=== PATIENT | male | born 1955 | race Caucasian/White ===

== ENCOUNTER 2017-05-17 13:01 | Emergency (ER) | payer OTHER ==
[~2017-05-17] VITALS: Ht 180.3 cm; Wt 120.2 kg
[~2017-05-17 13:01] MED LIST: BAYER LOW81 MG OR; DIOVAN320 MG OR; DIOVAN320 MG PO; DYAZIDE1 CAP PO; FISH OIL1 CAP; FLEXERIL10 MG PO; FLUZONE SPLT1 M1 IM; GLUCOTROL10 MG PO; GLUCOTROL5 MG OR; GLUCOTROL5 MG PO; LIALDA1.2 GM OR; METFORMIN500 M1 PO; METFORMIN850 MG PO; METO50TA52 OR; METOPROLOL SUC100 MG PO; NAPROXEN500 MG PO; NEURONTIN300 MG PO; NEURONTIN600 MG PO; NEURONTIN800 MG PO; NORVASC5 MG OR; PRAVASTATIN10 MG PO; SIMVASTATIN40 MG OR; SIMVASTATIN40 MG PO; TRUETEST STRIPS VI
[2017-05-17 13:51] LABS: HEMOGLOBIN 16.4 g/dl (14.0-18.0); IMMATURE GRANULOCYTES 0.7 % (0.0-1.0); MEAN CELL VOLUME 97.6 fL CALC (80.0-100.0); MEAN CORPUSCULAR HGB 29.7 pG CALC (26.0-32.0); MEAN CORPUSCULAR HGB CONC 30.4 g/L CALC (32.0-36.0); NEUT# 7.55 thou/uL (1.82-7.42); RED BLOOD COUNT 5.53 mill/uL (4.70-6.10); RED CELL DISTRI WIDTH 14.1 % (11.5-15.5)
[2017-05-17] MEDS ORDERED: JANUVIA50 MG PO (14:58)
[2017-05-17 15:10] LABS: PROTHROMBIN TIME 11.7 SECONDS (9.0-12.5)
[2017-05-17 15:15] LABS: ALBUMIN 3.1 g/dL (3.2-5.0); ALKALINE PHOSPHATASE 81 u/l (38-126); BILIRUBIN, TOTAL 0.5 mg/dL (0.0-1.4); BUN 52 mg/dL (8-23); BUN/CREATININE RATIO 46 (12-20 (CALC)); CARBON DIOXIDE 32 mmol/l (22-30); CHLORIDE 96 mmol/l (95-108); CREATININE 1.1 mg/dL (0.7-1.3); GFR > 60 ML/MIN (>=60 (CALC)); GFR FOR AFR.AMER. > 60 ML/MIN (>=60 (CALC)); SGOT/AST 28 u/l (19-48); SGPT/ALT 97 u/l (11-66); SODIUM 137 mmol/l (137-146); TOTAL PROTEIN 5.6 g/dL (6.3-8.2)
[2017-05-17 15:22] LABS: ANION GAP 15 (6-22 (CALC)); POTASSIUM 5.6 mmol/l (3.5-5.1)
[2017-05-17 19:38] VITALS: BP 112/60
[2017-05-17 19:52] LABS: URINE BILIRUBIN - DIPSTICK NEGATIVE (NEGATIVE); URINE BLOOD DIPSTICK NEGATIVE (NEGATIVE); URINE COLOR YELLOW; URINE GLUCOSE - DIPSTICK NEGATIVE (NEGATIVE); URINE KETONE NEGATIVE (NEGATIVE); URINE LEUK ESTERASE NEGATIVE (NEGATIVE); URINE NITRITE - DIPSTICK NEGATIVE (Negative); URINE PH 5.5 (4.5-8.0); URINE PROTEIN - DIPSTICK NEGATIVE (NEG-TRACE); URINE SPECIFIC GRAVITY 1.015; URINE UROBILINOGEN - DIPSTICK 0.2 E.U./dL (0.2)
[2017-05-17 19:55] LABS: URINE CLARITY CLEAR
== END 2017-05-17 19:50 | disposition short-term general hospital (02) | DRG 292 ==
LOC: ED 13:01
PROVIDERS: Emergency Medicine
DX: I50.9 Heart failure, unspecified (principal); I24.9 Acute ischemic heart disease, unspecified; N28.9 Disorder of kidney and ureter, unspecified; R79.89 Other specified abnormal findings of blood chemistry; F17.210 Nicotine dependence, cigarettes, uncomplicated; R53.1 Weakness; R06.02 Shortness of breath
CPT/HCPCS: J1650

== ENCOUNTER 2018-01-27 15:49 | Emergency (ER) | payer OTHER ==
[~2018-01-27] VITALS: Ht 180.3 cm; Wt 122.7 kg
[~2018-01-27 15:49] MED LIST changes: -FISH OIL1 CAP; +FISH OIL1 CAP PO; +JANUVIA50 MG PO
[2018-01-27] MEDS ORDERED: ATORVASTATIN CA80 MG PO (16:21)
[2018-01-27 16:22] LABS: HEMATOCRIT 54.4 % (39.0-50.0); IMMATURE GRANULOCYTES 0.6 % (0.0-5.0); MEAN CELL VOLUME 98.6 fL CALC (80.0-100.0); MEAN CORPUSCULAR HGB CONC 29.4 g/L CALC (32.0-36.0); NEUT# 4.61 thou/uL (1.82-7.42); RED BLOOD COUNT 5.52 mill/uL (4.70-6.10); RED CELL DISTRI WIDTH 14.6 % (11.5-15.5)
[2018-01-27] MEDS ORDERED: COMBIVENT RESPIMAT IN (16:22)
[2018-01-27] MEDS ORDERED: GLIPIZIDE5 MG PO (16:24)
[2018-01-27] MEDS ORDERED: IPRATROPIU0.5 MG/3 M IN (16:26)
[2018-01-27] MEDS ORDERED: LOSARTAN POT25 MG PO (16:27)
[2018-01-27] MEDS ORDERED: METFORMIN500 MG PO (16:28)
[2018-01-27] MEDS ORDERED: QVAR80 MCG/ACT IN (16:28)
[2018-01-27] MEDS ORDERED: MAXZIDE-2537.5 MG/TA PO (16:29)
[2018-01-27 16:34] LABS: ALBUMIN 3.5 g/dL (3.2-5.0); ALKALINE PHOSPHATASE 83 u/l (38-126); BILIRUBIN, TOTAL 0.5 mg/dL (0.0-1.4); BUN 37 mg/dL (8-23); BUN/CREATININE RATIO 33 (12-20 (CALC)); CARBON DIOXIDE 28 mmol/l (22-30); CHLORIDE 104 mmol/l (95-108); CREATININE 1.1 mg/dL (0.7-1.3); GFR > 60 ML/MIN (>=60 (CALC)); GFR FOR AFR.AMER. > 60 ML/MIN (>=60 (CALC)); SGOT/AST 27 u/l (19-48); SODIUM 142 mmol/l (137-146); TOTAL PROTEIN 6.2 g/dL (6.3-8.2)
[2018-01-27 16:35] LABS: ANION GAP 16 (6-22 (CALC)); POTASSIUM 5.8 mmol/l (3.5-5.1)
[2018-01-27 16:45] LABS: PROTHROMBIN TIME 10.9 SECONDS (9.0-12.5)
[2018-01-27 19:33] VITALS: BP 127/62
== END 2018-01-27 19:34 | DRG 379 ==
LOC: ED 15:49
PROVIDERS: Emergency Medicine
DX: K62.5 Hemorrhage of anus and rectum (principal); R06.89 Other abnormalities of breathing; E11.9 Type 2 diabetes mellitus without complications; J44.9 Chronic obstructive pulmonary disease, unspecified; F17.200 Nicotine dependence, unspecified, uncomplicated
CPT/HCPCS: J3475; S0164

== ENCOUNTER 2019-06-14 | Emergency (ER) | payer OTHER ==
[~2019-06-14] MED LIST changes: +ATORVASTATIN CA80 MG PO; +COMBIVENT RESPIMAT IN; +GLIPIZIDE5 MG PO; +IPRATROPIU0.5 MG/3 M IN; +LOSARTAN POT25 MG PO; +MAXZIDE-2537.5 MG/TA PO; +METFORMIN500 MG PO; +QVAR80 MCG/ACT IN
[2019-06-14 07:47] LABS: HEMOGLOBIN 15.5 g/dl (14.0-18.0); IMMATURE GRANULOCYTES 0.4 % (0.0-5.0); MEAN CELL VOLUME 96.3 fL CALC (80.0-100.0); MEAN CORPUSCULAR HGB 31.6 pG CALC (26.0-32.0); MEAN CORPUSCULAR HGB CONC 32.8 g/L CALC (32.0-36.0); NEUT# 10.57 thou/uL (1.82-7.42); RED BLOOD COUNT 4.91 mill/uL (4.70-6.10)
[2019-06-14 07:50] LABS: HEMATOCRIT 47.3 % (39.0-50.0)
[2019-06-14 08:08] LABS: ALKALINE PHOSPHATASE 92 u/l (38-126); AMYLASE 64 u/l (30-110); BILIRUBIN, TOTAL 0.6 mg/dL (0.0-1.4); BUN 24 mg/dL (8-23); BUN/CREATININE RATIO 22 (12-20 (CALC)); CARBON DIOXIDE 28 mmol/l (22-30); CHLORIDE 96 mmol/l (95-108); CREATININE 1.1 mg/dL (0.7-1.3); GFR > 60 ML/MIN (>=60 (CALC)); GFR FOR AFR.AMER. > 60 ML/MIN (>=60 (CALC)); LIPASE 113 u/l (23-300); SGOT/AST 19 u/l (19-48); SODIUM 135 mmol/l (137-146); TOTAL PROTEIN 7.2 g/dL (6.3-8.2)
[2019-06-14] MEDS ORDERED: NORVASC5 M1 PO (08:14)
[2019-06-14 08:17] LABS: ACT PARTIAL THROMBO TIME 26.6 SECONDS (20.0-32.5); ALBUMIN 4.3 g/dL (3.2-5.0); ANION GAP 16 (6-22 (CALC)); D-DIMER 0.33 mg/L (0.19-0.60); INTERNATIONAL NORMALIZED RATIO 0.9 RATIO (0.7-1.3); POTASSIUM 4.5 mmol/l (3.5-5.1); PROTHROMBIN TIME 9.6 SECONDS (9.0-12.5)
[2019-06-14 08:20] LABS: MYOGLOBIN 52 ng/mL (0 - 121)
[2019-06-14] MEDS ORDERED: ZPAK PO (08:25)
[2019-06-14] MEDS ORDERED: PROAIR HFA108 MCG/AC PO (08:25)
[2019-06-14] MEDS ORDERED: IPRATROPIU0.5 MG/3 M IN (08:25)
[2019-06-14] MEDS ORDERED: PREDNISONE50 MG PO (08:25)
== END 2019-06-14 09:37 | disposition left against medical advice (07) | DRG 313 ==
PROVIDERS: Family Medicine
DX: R07.9 Chest pain, unspecified (principal); J44.1 Chronic obstructive pulmonary disease with (acute) exacerbation; I10 Essential (primary) hypertension; E11.9 Type 2 diabetes mellitus without complications; Z79.84 Long term (current) use of oral hypoglycemic drugs; Z91.19 Patient's noncompliance with other medical treatment and regimen

== ENCOUNTER 2021-03-22 10:35 | Inpatient (IN) | payer OTHER, MEDICARE ==
[~2021-03-22] VITALS: Ht 180.3 cm; Wt 114.0 kg
[~2021-03-22 10:35] MED LIST changes: +NORVASC5 M1 PO; +PREDNISONE50 MG PO; +PROAIR HFA108 MCG/AC PO; +ZPAK PO
[2021-03-22] MEDS ORDERED: FARXIGA10 MG PO (11:20)
[2021-03-22] MEDS ORDERED: RYBELSUS3 MG PO (11:23)
[2021-03-22 11:42] LABS: HEMATOCRIT 49.2 % (39.0-50.0); HEMOGLOBIN 14.8 g/dl (14.0-18.0); IMMATURE GRANULOCYTES 0.5 % (0.0-5.0); MEAN CELL VOLUME 99.8 fL CALC (80.0-100.0); MEAN CORPUSCULAR HGB CONC 30.1 g/dL CAL (32.0-36.0); NEUT# 3.6 thou/uL (1.82-7.42); RED BLOOD COUNT 4.93 mill/uL (4.70-6.10); RED CELL DISTRI WIDTH 12.7 % (11.5-15.5)
[2021-03-22 11:58] LABS: ALBUMIN 3.6 g/dL (3.2-5.0); ALKALINE PHOSPHATASE 90 u/l (38-126); ANION GAP 11 (6-22 (CALC)); BILIRUBIN, TOTAL 0.6 mg/dL (0.0-1.4); BUN 29 mg/dL (8-23); BUN/CREATININE RATIO 28 (12-20 (CALC)); CHLORIDE 93 mmol/l (95-108); CREATININE 1.1 mg/dL (0.7-1.3); GFR > 60 ML/MIN (>=60 (CALC)); GFR FOR AFR.AMER. > 60 ML/MIN (>=60 (CALC)); POTASSIUM 4.6 mmol/l (3.5-5.1); SGOT/AST 24 u/l (19-48); SODIUM 134 mmol/l (137-146); TOTAL PROTEIN 6.8 g/dL (6.3-8.2)
[2021-03-22 12:02] LABS: CARBON DIOXIDE 35 mmol/l (22-30)
[2021-03-22] MEDS ORDERED: DOXYCYCLINE100 MG PO (15:14)
[2021-03-22 15:35] VITALS: BP 137/84
[2021-03-22 19:00] VITALS: BP 137/69
[2021-03-22 23:52] VITALS: BP 108/54
[2021-03-23 04:01] VITALS: BP 134/68
[2021-03-23 05:33] LABS: HEMATOCRIT 46.4 % (39.0-50.0); HEMOGLOBIN 14.1 g/dl (14.0-18.0); MEAN CELL VOLUME 98.3 fL CALC (80.0-100.0); MEAN CORPUSCULAR HGB 29.9 pG CALC (26.0-32.0); MEAN CORPUSCULAR HGB CONC 30.4 g/dL CAL (32.0-36.0); RED BLOOD COUNT 4.72 mill/uL (4.70-6.10); RED CELL DISTRI WIDTH 12.9 % (11.5-15.5)
[2021-03-23 05:52] LABS: ANION GAP 11 (6-22 (CALC)); BUN 39 mg/dL (8-23); BUN/CREATININE RATIO 34 (12-20 (CALC)); CALCULATED LDLCHOLESTEROL 38 mg/dL (62-129 (CALC)); CARBON DIOXIDE 34 mmol/l (22-30); CHLORIDE 94 mmol/l (95-108); CHOLESTEROL HDL RATIO 2.3 (<4.4 (CALC)); CREATININE 1.2 mg/dL (0.7-1.3); GFR > 60 ML/MIN (>=60 (CALC)); GFR FOR AFR.AMER. > 60 ML/MIN (>=60 (CALC)); HDL CHOLESTEROL 42 mg/dL (>=40); MAGNESIUM 1.8 mg/dL (1.6-2.3); SODIUM 133 mmol/l (137-146); TOTAL CHOLESTEROL 97 mg/dl (0-199); TOTAL TRIGLYCERIDES 85 mg/dl (30-149); VLDL CHOLESTROL 17 mg/dl (4-45 (CALC))
[2021-03-23 06:00] LABS: POTASSIUM 5.6 mmol/l (3.5-5.1)
[2021-03-23 07:36] VITALS: BP 126/68
[2021-03-23 11:49] VITALS: BP 147/64
[2021-03-23 14:50] VITALS: BP 105/51
[2021-03-23 19:00] VITALS: BP 98/53
[2021-03-24] VITALS (7 sets, daily range): BP systolic 96–145; BP diastolic 51–86
[2021-03-24 05:42] LABS: HEMATOCRIT 48.4 % (39.0-50.0); HEMOGLOBIN 14.5 g/dl (14.0-18.0); MEAN CELL VOLUME 100.6 fL CALC (80.0-100.0); MEAN CORPUSCULAR HGB 30.1 pG CALC (26.0-32.0); RED BLOOD COUNT 4.81 mill/uL (4.70-6.10); RED CELL DISTRI WIDTH 13.2 % (11.5-15.5)
[2021-03-24 05:52] LABS: BUN 51 mg/dL (8-23); BUN/CREATININE RATIO 40 (12-20 (CALC)); CARBON DIOXIDE 35 mmol/l (22-30); CHLORIDE 92 mmol/l (95-108); CREATININE 1.3 mg/dL (0.7-1.3); GFR 55 ML/MIN (>=60 (CALC)); GFR FOR AFR.AMER. > 60 ML/MIN (>=60 (CALC)); MAGNESIUM 1.9 mg/dL (1.6-2.3); SODIUM 134 mmol/l (137-146)
[2021-03-24 05:53] LABS: ANION GAP 12 (6-22 (CALC)); POTASSIUM 5.4 mmol/l (3.5-5.1)
[2021-03-25 03:49] VITALS: BP 137/68
[2021-03-25 05:54] LABS: HEMATOCRIT 47.9 % (39.0-50.0); HEMOGLOBIN 14.1 g/dl (14.0-18.0); MEAN CELL VOLUME 100.4 fL CALC (80.0-100.0); MEAN CORPUSCULAR HGB 29.6 pG CALC (26.0-32.0); MEAN CORPUSCULAR HGB CONC 29.4 g/dL CAL (32.0-36.0); RED BLOOD COUNT 4.77 mill/uL (4.70-6.10); RED CELL DISTRI WIDTH 13.2 % (11.5-15.5)
[2021-03-25 06:22] LABS: ANION GAP 13 (6-22 (CALC)); BUN 53 mg/dL (8-23); BUN/CREATININE RATIO 48 (12-20 (CALC)); CARBON DIOXIDE 35 mmol/l (22-30); CHLORIDE 94 mmol/l (95-108); CREATININE 1.1 mg/dL (0.7-1.3); GFR > 60 ML/MIN (>=60 (CALC)); GFR FOR AFR.AMER. > 60 ML/MIN (>=60 (CALC)); POTASSIUM 4.7 mmol/l (3.5-5.1); SODIUM 136 mmol/l (137-146)
[2021-03-25 07:23] VITALS: BP 142/66
[2021-03-25 11:09] VITALS: BP 144/66
[2021-03-25 15:43] VITALS: BP 111/67
[2021-03-25 19:40] VITALS: BP 109/68
[2021-03-26 00:05] VITALS: BP 124/56
[2021-03-26 04:00] VITALS: BP 102/57
[2021-03-26 04:55] LABS: HEMATOCRIT 48.7 % (39.0-50.0); MEAN CELL VOLUME 98.2 fL CALC (80.0-100.0); MEAN CORPUSCULAR HGB 30.2 pG CALC (26.0-32.0); MEAN CORPUSCULAR HGB CONC 30.8 g/dL CAL (32.0-36.0); RED BLOOD COUNT 4.96 mill/uL (4.70-6.10)
[2021-03-26 05:13] LABS: ALBUMIN 3.2 g/dL (3.2-5.0); ALKALINE PHOSPHATASE 66 u/l (38-126); ANION GAP 10 (6-22 (CALC)); BILIRUBIN, TOTAL 0.5 mg/dL (0.0-1.4); BUN 47 mg/dL (8-23); BUN/CREATININE RATIO 47 (12-20 (CALC)); CARBON DIOXIDE 38 mmol/l (22-30); CHLORIDE 91 mmol/l (95-108); GFR > 60 ML/MIN (>=60 (CALC)); GFR FOR AFR.AMER. > 60 ML/MIN (>=60 (CALC)); POTASSIUM 4.1 mmol/l (3.5-5.1); SGOT/AST 17 u/l (19-48); SODIUM 135 mmol/l (137-146); TOTAL PROTEIN 5.8 g/dL (6.3-8.2)
[2021-03-26 07:25] VITALS: BP 136/82
[2021-03-26] MEDS ORDERED: LASIX 40 MG TAB40 MG PO (08:35)
[2021-03-26 09:27] VITALS: BP 136/82
== END 2021-03-26 11:04 | disposition home or self-care (01) | DRG 291 ==
LOC: ED 10:35 → ED-I 12:15 → ED 12:29 → MS2 12:30
PROVIDERS: Family Medicine; Nurse Practitioner; Nurse Practitioner Family; ADMIT Internal Medicine; ATTEND Internal Medicine
DX: I11.0 Hypertensive heart disease with heart failure (principal); J18.9 Pneumonia, unspecified organism; J44.1 Chronic obstructive pulmonary disease with (acute) exacerbation; J44.0 Chronic obstructive pulmonary disease with (acute) lower respiratory infection; I50.9 Heart failure, unspecified; E11.9 Type 2 diabetes mellitus without complications; E78.5 Hyperlipidemia, unspecified; E66.9 Obesity, unspecified; Z68.35 Body mass index [BMI] 35.0-35.9, adult; Z79.84 Long term (current) use of oral hypoglycemic drugs; Z20.822 Contact with and (suspected) exposure to COVID-19
CPT/HCPCS: J1650

== ENCOUNTER 2022-07-23 15:25 | Inpatient (IN) | payer OTHER ==
[~2022-07-23] VITALS: Ht 180.3 cm; Wt 115.0 kg
[2022-07-23] VITALS (19 sets, daily range): BP systolic 97–133; BP diastolic 33–68
[~2022-07-23 15:25] MED LIST changes: +DOXYCYCLINE100 MG PO; +FARXIGA10 MG PO; +LASIX 40 MG TAB40 MG PO; +RYBELSUS3 MG PO
--- NOTE | 2022-07-23 16:07 | NUR ---
pt was placed on 4LNC, sats decreased to 88, 02 increased to 6L, sats at 93%, provider notified
[2022-07-23 16:13] LABS: BASO% 0.4 % (0-3); EOS% 0.4 % (0-8); HEMOGLOBIN 14.4 g/dl (14.0-18.0); IMMATURE GRANULOCYTES 0.4 % (0.0-5.0); LYMPH% 9.5 % (15-41); MEAN CELL VOLUME 102.9 fL CALC (80.0-100.0); MEAN CORPUSCULAR HGB 29.6 pG CALC (26.0-32.0); MEAN CORPUSCULAR HGB CONC 28.8 g/dL CAL (32.0-36.0); MONO% 11.6 % (2-13); NEUT# 6.14 thou/uL (1.82-7.42); NEUT% 77.7 % (42-76); RED BLOOD COUNT 4.86 mill/uL (4.70-6.10); RED CELL DISTRI WIDTH 13.6 % (11.5-15.5)
[2022-07-23 16:30] LABS: ALBUMIN 3.6 g/dL (3.2-5.0); ALKALINE PHOSPHATASE 87 u/l (38-126); ANION GAP 12 (6-22 (CALC)); BILIRUBIN, TOTAL 0.6 mg/dL (0.2-1.3); BUN 35 mg/dL (8-23); BUN/CREATININE RATIO 29 (12-20 (CALC)); CARBON DIOXIDE 33 mmol/l (22-30); CHLORIDE 97 mmol/l (95-108); CREATININE 1.2 mg/dL (0.7-1.3); GFR FOR AFR.AMER. > 60 ML/MIN (>=60 (CALC)); GFR OTHER RACES > 60 ML/MIN (>=60 (CALC)); POTASSIUM 4.8 mmol/l (3.5-5.1); SGOT/AST 20 u/l (19-48); SODIUM 137 mmol/l (137-146); TOTAL PROTEIN 5.9 g/dL (6.3-8.2)
--- NOTE | 2022-07-23 16:40 | NUR ---
respiratory at bedside to initiate bipap
--- NOTE | 2022-07-23 17:18 | NUR ---
pt tolerating bipap
[2022-07-23 17:33] LABS: URINE BILIRUBIN - DIPSTICK NEGATIVE (NEGATIVE); URINE BLOOD DIPSTICK NEGATIVE (NEGATIVE); URINE COLOR YELLOW; URINE GLUCOSE - DIPSTICK >=1000 mg/dL (NEGATIVE); URINE KETONE NEGATIVE (NEGATIVE); URINE LEUK ESTERASE NEGATIVE (NEGATIVE); URINE PROTEIN - DIPSTICK NEGATIVE (NEG-TRACE); URINE UROBILINOGEN - DIPSTICK 0.2 E.U./dL (0.2)
[2022-07-23 17:34] LABS: URINE NITRITE - DIPSTICK NEGATIVE (Negative)
--- NOTE | 2022-07-23 17:43 | NUR ---
FIO2 INCREASED TO 50% DUE TO O2 SAT OF 88%.
--- NOTE | 2022-07-23 17:45 | NUR ---
respiratory called to eval pts bipap, 02 sat 88%.
--- NOTE | 2022-07-23 18:00 | NUR ---
pt tolerating bipap, no distress, family at bedside
--- NOTE | 2022-07-23 20:00 | NUR ---
RECEIVED PATIENT FROM ER ALERT AND ORIENTED X 4. ON 4L NC TOLERATING WELL. VITAL SIGN STABLE . ORIENTED TO ROOM AND CALL LIGHT. CALL LIGHT IN REACH.
--- NOTE | 2022-07-23 21:36 | NUR ---
ATE 100 % OF HIS DINNER. REMAIN ON 4L NC CANNULA. DENIES ANY PAIN AT THIS TIME.
[2022-07-24] VITALS (19 sets, daily range): BP systolic 93–145; BP diastolic 33–67
--- NOTE | 2022-07-24 | NUR ---
REMAIN ON O2 AT 4L NC. EKG DONE. LAB CAME TO GET HIS LAB WORK . NO C/O PAIN OR DISCOMFORT.
--- NOTE | 2022-07-24 00:53 | NUR ---
PATIENT DESATTING TO 86 % ON NASAL CANNULA. RT PUT THE PATIENT BACK TO BIPAP.
--- NOTE | 2022-07-24 02:00 | NUR ---
REMAIN ON BIPAP AT 50 % FIO2. TOLERATING WELL.
--- NOTE | 2022-07-24 04:00 | NUR ---
PATIENT SLEEPING COMFORTABLY. BIPAP REMAIN IN USE.
[2022-07-24 05:22] LABS: HEMATOCRIT 51.1 % (39.0-50.0); HEMOGLOBIN 14.8 g/dl (14.0-18.0); MEAN CELL VOLUME 101.8 fL CALC (80.0-100.0); MEAN CORPUSCULAR HGB 29.5 pG CALC (26.0-32.0); RED BLOOD COUNT 5.02 mill/uL (4.70-6.10); RED CELL DISTRI WIDTH 13.4 % (11.5-15.5)
--- NOTE | 2022-07-24 05:41 | NUR ---
SLEEPING . BIPAP IN USE. NO S/S OF DISTRESS NOTED. CALL LIGHT IN REACH.
[2022-07-24 05:54] LABS: ALBUMIN 3.4 g/dL (3.2-5.0); ALKALINE PHOSPHATASE 80 u/l (38-126); ANION GAP 8 (6-22 (CALC)); BILIRUBIN, TOTAL 0.4 mg/dL (0.2-1.3); BUN 39 mg/dL (8-23); BUN/CREATININE RATIO 36 (12-20 (CALC)); CALCULATED LDLCHOLESTEROL 42 mg/dL (62-129 (CALC)); CARBON DIOXIDE 37 mmol/l (22-30); CHLORIDE 95 mmol/l (95-108); CHOLESTEROL HDL RATIO 3.4 (<4.4 (CALC)); CREATININE 1.1 mg/dL (0.7-1.3); GFR FOR AFR.AMER. > 60 ML/MIN (>=60 (CALC)); GFR OTHER RACES > 60 ML/MIN (>=60 (CALC)); HDL CHOLESTEROL 26 mg/dL (39.0-59.0); SGOT/AST 19 u/l (19-48); SODIUM 135 mmol/l (137-146); TOTAL CHOLESTEROL 87 mg/dl (0-199); TOTAL PROTEIN 6.1 g/dL (6.3-8.2); TOTAL TRIGLYCERIDES 96 mg/dl (0-149); VLDL CHOLESTROL 19 mg/dl (4-45 (CALC))
[2022-07-24 06:09] LABS: POTASSIUM 5.3 mmol/l (3.5-5.1)
--- NOTE | 2022-07-24 07:38 | NUR ---
PT SEEN AT REST IN THE BED, NO DISTRESS. BIPAP IN PLACE AT 50% FIO2, TURNED DOWN TO 40%.
--- NOTE | 2022-07-24 11:28 | NUR ---
PT ON NASAL CANNULA AT 4 LPM, SATS IN THE LOW TO MID 90s. PT AMBULATORY IN ROOM WITH TUBING EXTENSION IN PLACE.
--- NOTE | 2022-07-24 19:00 | NUR ---
awake. watching tv. denies distress. o2 cont per nc. media buyer shows sinus tach pacs pvcs, #20 rac saline lock. po fluids taken well. voids per urinal & bathroom. fall precautions cont.
--- NOTE | 2022-07-24 22:00 | NUR ---
watching tv. denies distress. cardiac sonographer shows sinus rhhythm pacs pvcs.
[2022-07-25] VITALS (15 sets, daily range): BP systolic 84–139; BP diastolic 36–67
--- NOTE | 2022-07-25 00:25 | NUR ---
bipap on per pts request.
--- NOTE | 2022-07-25 02:00 | NUR ---
resting quietly. resps even & unlabored. no apparent distress.
--- NOTE | 2022-07-25 04:00 | NUR ---
eyes closed. no distress. bipap conts.
--- NOTE | 2022-07-25 05:10 | NUR ---
lab here. blood drawn.
[2022-07-25 05:41] LABS: HEMATOCRIT 46.5 % (39.0-50.0); HEMOGLOBIN 13.8 g/dl (14.0-18.0); MEAN CELL VOLUME 100.2 fL CALC (80.0-100.0); MEAN CORPUSCULAR HGB 29.7 pG CALC (26.0-32.0); MEAN CORPUSCULAR HGB CONC 29.7 g/dL CAL (32.0-36.0); RED BLOOD COUNT 4.64 mill/uL (4.70-6.10); RED CELL DISTRI WIDTH 13.6 % (11.5-15.5)
[2022-07-25 05:53] LABS: ALBUMIN 3.3 g/dL (3.2-5.0); ALKALINE PHOSPHATASE 78 u/l (38-126); ANION GAP 9 (6-22 (CALC)); BUN 45 mg/dL (8-23); BUN/CREATININE RATIO 41 (12-20 (CALC)); CARBON DIOXIDE 37 mmol/l (22-30); CHLORIDE 91 mmol/l (95-108); CREATININE 1.1 mg/dL (0.7-1.3); GFR FOR AFR.AMER. > 60 ML/MIN (>=60 (CALC)); GFR OTHER RACES > 60 ML/MIN (>=60 (CALC)); MAGNESIUM 1.8 mg/dL (1.6-2.3); POTASSIUM 4.3 mmol/l (3.5-5.1); SGOT/AST 17 u/l (19-48); SODIUM 132 mmol/l (137-146); TOTAL PROTEIN 5.6 g/dL (6.3-8.2)
[2022-07-25 05:57] LABS: BILIRUBIN, TOTAL 0.2 mg/dL (0.2-1.3)
--- NOTE | 2022-07-25 08:00 | NUR ---
PT IS HERE FOR COPD AND CHF EXACERBATION. PT IS A/O X 3. AMBULATES INDEPENDENTLY. PT IS ON FLUID RESTRICTIONS AND MONITORING I/O. PT IS IN NSR, LUNGS CLEAR BUT DIMINISHED LOWER. PT ON 2.5L NC. CPAP AT HOME AND BIPAP AT NIGHT WHILE ADMITTED. PT HAS DRY, NON PRODUCTIVE COUGH. BOWEL SOUNDS PRESENT, LAST BM ON 07/25/22; NO DIFFICULTY URINATING. PULSES STRONG ALL EXTREMETIES, SKIN COOL/ DRY, NO WOUNDS OR INDICATIONS OF PRESSURE ULCER. IV ACCESS IN RAC 20G HEP LOCK. PT IS ACHS.
--- NOTE | 2022-07-25 09:28 | NUR ---
Pt brought to radiology for CXR by wheelchair. Xray completed, pt tolerated well. Pt is back in bed resting.
--- NOTE | 2022-07-25 12:00 | NUR ---
PT IS SITTING UP IN BED WATCHING TV AND EATING LUNCH. PT'S IS IN ROOM VISITING. PT VOICES NO CONCERNS AT THIS TIME.
[2022-07-25] MEDS ORDERED: LASIX40 MG PO (12:17)
[2022-07-25] MEDS ORDERED: MEDDOSEPAK PO (12:17)
[2022-07-25] MEDS ORDERED: VIBRAMYCIN100 M2 PO (12:18)
--- NOTE | 2022-07-25 14:05 | NUR ---
PT IS LAYING IN BED WATCHING TV. MEDS GIVEN. BELONGINGS WITHIN REACH. PT VERBALIZES NO CONCERNS OR NEEDS AT THIS TIME.
--- NOTE | 2022-07-25 14:51 | NUR ---
PT SITTING IN BED. DISCHARGE TEACHING COMPLETED. PT DENIED ANY QUESTIONS. IV REMOVED. PT DRESSED IN OWN CLOTHING. PRESENT. PT LEFT VIA WHEELCHAIR.
== END 2022-07-25 14:51 | disposition home or self-care (01) | DRG 291 ==
LOC: ED 15:25 → ED-I 18:20 → ED 18:59 → ICU 19:00
PROVIDERS: Family Medicine; ADMIT Internal Medicine; ATTEND Internal Medicine
PROC: 5A09357 Assistance with Respiratory Ventilation, Less than 24 Consecutive Hours, Continuous Positive Airway Pressure (ICD-10-PCS; principal; 2022-07-23)
DX: I11.0 Hypertensive heart disease with heart failure (principal); I50.33 Acute on chronic diastolic (congestive) heart failure; J96.21 Acute and chronic respiratory failure with hypoxia; J96.22 Acute and chronic respiratory failure with hypercapnia; J44.1 Chronic obstructive pulmonary disease with (acute) exacerbation; E11.9 Type 2 diabetes mellitus without complications; E78.5 Hyperlipidemia, unspecified; F17.210 Nicotine dependence, cigarettes, uncomplicated; T50.2X6A Underdosing of carbonic-anhydrase inhibitors, benzothiadiazides and other diuretics, initial encounter; T41.5X6A Underdosing of therapeutic gases, initial encounter; Z91.128 Patient's intentional underdosing of medication regimen for other reason; Z79.84 Long term (current) use of oral hypoglycemic drugs; Z99.81 Dependence on supplemental oxygen
CPT/HCPCS: J1650